=== PATIENT | female | born 1985 | race African-American/Black ===

== ENCOUNTER 2022-03-03 17:28 | Emergency (ER) | payer MEDICAID ==
[~2022-03-03] VITALS: Ht 167.6 cm; Wt 73.0 kg
[2022-03-03] MEDS ORDERED: KETOROLAC 15MG/ML VIAL IV ONE (20:00)
[2022-03-03 20:34] LABS: HCG SCREEN NEGATIVE
[2022-03-03] MEDS ORDERED: IPRATROPIUM BROMIDE (0.02%) 0.5MG/2.5ML NEB HHN STA (22:33)
[2022-03-03] MEDS ORDERED: ALBUTEROL (0.083%) 2.5MG/3ML NEB HHN STA (22:33)
[2022-03-04] MEDS ORDERED: KETOROLAC 30MG/ML VIAL IM ONE
[2022-03-04 00:33] VITALS: BP 116/84
== END 2022-03-04 01:23 | disposition home or self-care (01) ==
LOC: ER 17:28
DX: M79.18 Myalgia, other site (principal); J45.909 Unspecified asthma, uncomplicated; M32.9 Systemic lupus erythematosus, unspecified; V43.02XA Car driver injured in collision with other type car in nontraffic accident, initial encounter; Y93.89 Activity, other specified; Y92.410 Unspecified street and highway as the place of occurrence of the external cause; Z88.8 Allergy status to other drugs, medicaments and biological substances; Z86.16 Personal history of COVID-19
CPT/HCPCS: 70450; 71250; 72125; 74176; 84703; 94640; 99284; Z7610; J1885